=== PATIENT | male | born 2000 ===

== ENCOUNTER 2018-09-16 09:51 | Emergency (ER) | payer BC, OTHER ==
[2018-09-16] MEDS ORDERED: SODIUM CHLORIDE 0.9% 1000ML 1,000 ML IV SCH (10:30)
[2018-09-16 10:43] LABS: BASOPHILS % (AUTO) 1 % (0-3); EOSINOPHILS % (AUTO) 2 % (0-9); HEMATOCRIT 40 % (39-53); LYMPHOCYTES % (AUTO) 26.7 % (10-50); MEAN CORPUSCULAR HEMOGLOBIN 27.8 pg (27.0-32.0); MEAN CORPUSCULAR HGB CONC 32.3 gm/dl (32.0-36.0); MEAN CORPUSCULAR VOLUME 86 fL (80-100); MONOCYTES % (AUTO) 8.4 % (0-12); NEUTROPHILS % (AUTO) 62.1 % (37-80)
[2018-09-16 10:56] LABS: CALCIUM 8.8 mg/dl (8.5-10.1); CREATININE 0.98 mg/dl (0.80-1.30); POTASSIUM 3.7 mMol/L (3.5-5.1)
[2018-09-16 11:49] VITALS: TEMP 96.6; O2SAT 99
[2018-09-16] MEDS ORDERED: SODIUM CHLORIDE 0.9% FLUSH 10 ML SOL IV PRN (12:01)
[2018-09-16 12:02] VITALS: BP 121/59; PULSE 41; RESP 16
== END 2018-09-16 12:11 | disposition home or self-care (01) ==
LOC: ED 09:51
DX: E86.0 Dehydration (principal)
CPT/HCPCS: 70450; 80048; 85025; 93005; 96365; 99283; 99285